=== PATIENT | female | born 1975 | race Caucasian/White ===

== ENCOUNTER 2019-10-19 08:00 | Outpatient (CLI) | payer OTHER ==
[2019-10-19 19:28] LABS: BILIRUBIN,URINE NEGATIVE (NEGATIVE); CLARITY,URINE CLEAR (CLEAR); GLUCOSE, URINE (UA) NEGATIVE (NEGATIVE); KETONES,URINE (UA) NEGATIVE (NEGATIVE); LEUKOCYTE ESTERASE, URINE NEGATIVE (NEGATIVE); NITRITE,URINE NEGATIVE (NEGATIVE); OCCULT BLOOD,URINE NEGATIVE (NEGATIVE); PROTEIN,URINE NEGATIVE (NEGATIVE); UROBILINOGEN,URINE 0.2 (NORMAL) E.U./dL (NORMAL)
== END 2019-10-19 23:59 | disposition home or self-care (01) ==
LOC: LAB.R 08:00
PROVIDERS: ATTEND Obstetrics & Gynecology
DX: R30.0 Dysuria (principal)
CPT/HCPCS: 81001; 81003; 87086

== ENCOUNTER 2021-05-29 10:05 | Outpatient (CLI) | payer OTHER ==
[2021-05-29 13:11] LABS: THYROID STIMULATING HORMONE 3.22 uIU/mL (0.34-5.60)
[2021-05-29 13:13] LABS: FREE T3 2.45 pg/mL (2.5-3.9)
[2021-05-29 13:14] LABS: FREE T4 (FREE THYROXINE) 0.57 ng/dL (0.58-1.64)
== END 2021-05-29 23:59 | disposition home or self-care (01) ==
LOC: LAB.N 10:05
PROVIDERS: ATTEND Physician Assistant
DX: E04.9 Nontoxic goiter, unspecified (principal)
CPT/HCPCS: 36415; 81599; 84439; 84443; 84481; 86376; 86800

== ENCOUNTER 2021-05-31 07:04 | Outpatient (CLI) | payer OTHER ==
--- NOTE | 2021-05-31 16:57 | Ultrasound Report ---
PROCEDURE: Head or Neck Soft Tissue INDICATIONS: GOITER TECHNIQUE: Real time scanning was performed of the neck region of interest, with image documentation . COMPARISON: None. FINDINGS: Right thyroid measures 54 mm x 27 mm x 27 mm. Isthmus measures 10 mm. Left thyroid measures 44 mm x 24 mm x 17 mm. Right mid posterior thyroid nodule is present, measuring 25 mm x 14 mm x 15 mm. Shape is wider than t all. Composition is solid. Echogenicity is isoechoic. Margins are lobulated. No echogenic foci are pr esent. Total score: 5. This yields a TI-RADS score of 4. Recommendation: Fine needle aspiration. Right inferior posterior thyroid nodule is present measuring 15 mm x 9 mm x 12 mm. Shape is wider damaso n tall. Composition is solid. Echogenicity is isoechoic. Margins are smooth. No echogenic foci are pr esent. Total score: 3. This yields a tire at score of 3. Recommendation: Follow-up ultrasound in one year. IMPRESSION: 1. Right thyroid nodules as described above. Next line 2. Fine-needle aspiration of the right mid posterior thyroid nodule is recommended. 3. Follow-up ultrasound in one year of the right inferior thyroid nodule is recommended. Reviewed by: Ramin Rodriguez MD on 05/31/2021 4:56 PM PST Approved by: Ramin Rodriguez MD on 05/31/2021 4:56 PM PST Station ID: [id number]
== END 2021-05-31 07:05 | disposition home or self-care (01) ==
LOC: DI 07:04
PROVIDERS: ATTEND Physician Assistant
DX: E04.2 Nontoxic multinodular goiter (principal); E04.9 Nontoxic goiter, unspecified
CPT/HCPCS: 81599; 86376; 86800

== ENCOUNTER 2021-05-31 10:53 | Outpatient (CLI) | payer OTHER | END 2021-05-31 10:54 | disposition home or self-care (01) | LOC: LAB.N 10:53 | PROVIDERS: ATTEND Family Medicine | DX: E04.9 Nontoxic goiter, unspecified (principal) | CPT/HCPCS: 81599; 86376; 86800 ==

== ENCOUNTER 2021-07-04 08:00 | Outpatient (CLI) | payer OTHER | END 2021-07-04 23:59 | LOC: LAB 08:00 | PROVIDERS: ATTEND Physician Assistant | DX: J34.89 Other specified disorders of nose and nasal sinuses (principal); Z20.822 Contact with and (suspected) exposure to COVID-19 ==

== ENCOUNTER 2022-03-22 12:20 | Emergency (ER) | payer OTHER ==
[2022-03-22 12:26] VITALS: BP 118/75
--- NOTE | 2022-03-22 13:04 | XRAY Report ---
PROCEDURE: Finger(s) RT INDICATIONS: Trauma TECHNIQUE: AP hand, 3 views of the ring finger(s) acquired. COMPARISON: None FINDINGS: Bones: No fractures or dislocations. No suspicious bony lesions. Soft tissues: No suspicious soft tissue calcifications. IMPRESSION: No acute traumatic abnormality. Reviewed by: Jose Angel Ricardo on 03/22/2022 1:03 PM PDT Approved by: Jose Angel Ricardo on 03/22/2022 1:03 PM PDT Station ID: [email or web address]
--- NOTE | 2022-03-22 14:16 | ED Physician Documentation ---
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 No: Weakness, Numbness Similar symptoms before: Has not had sx before Review of Systems Musculoskeletal: reports: Other PD PAST MEDICAL HISTORY - Allergies Allergies/Adverse Reactions: Allergies Allergy/AdvReac Type Severity Reaction Status Date / Time Sulfa (Sulfonamide Allergy Rash Verified 03/22/22 12:23 Antibiotics) PD ED PE NORMAL - Vitals Vital signs reviewed: Yes - General General: No acute distress, Well developed/nourished - Derm Derm: Normal color, Warm and dry - Extremities Extremities: Other (right little finger with tenderness and swelling at DIP joint. Able to flex and extend against resistance, but pain/guarded with extension. No noted laxity with mild stress testing.) - Neuro Neuro: Alert and oriented X 3, Normal speech Results - Vitals Vitals: Vital Signs - 24 hr 03/22/22 12:23 Temperature 36.5 C Heart Rate 52 L Respiratory 16 Rate Blood Pressure 118/75 O2 Saturation 99 Oxygen O2 Source Room air - Rads (name of study) right little finger Radiology: Prelim report reviewed (no fractures), See rad report Departure - Departure Disposition: 01 Home, Self Care Clinical Impression: Finger sprain Qualifiers: Encounter type: initial encounter Finger: little finger Sprain of finger site: interphalangeal joint Laterality: right Qualified Code(s): S63.636A - Sprain of interphalangeal joint of right little finger, initial encounter Condition: Stable Record reviewed to determine appropriate education?: Yes Instructions: ED Sprain Finger Comments: Your x-ray appears normal without any signs of fracture nor dislocation. On exam it does not seem like any disruption of the ligaments or tendons. I would presume this will get better with splinting and decreased activity over the next several days to week. Tylenol ibuprofen if needed for pains. Recheck if not better over several days to week. Discharge Date/Time: 03/22/22 14:32
== END 2022-03-22 14:32 | disposition home or self-care (01) ==
LOC: ED 12:20
DX: S63.636A Sprain of interphalangeal joint of right little finger, initial encounter (principal); W21.01XA Struck by football, initial encounter; Y93.61 Activity, american tackle football
CPT/HCPCS: 1040M; 73140; 99282; 99283